=== PATIENT | male | born 1970 | race Caucasian/White ===

== ENCOUNTER 2022-02-04 14:00 | Emergency (ER) | payer SELFPAY ==
[2022-02-04] MEDS ORDERED: HYDROcodone/Acetaminophen 10/325 mg Tablet ONE (14:25)
[2022-02-04] MEDS ORDERED: AMOXicillin 250 MG CAP ONE (14:27)
[2022-02-04] MEDS ORDERED: AMOXicillin 250 MG CAP PO SCH (15:00)
[2022-02-04] MEDS ORDERED: HYDROcodone/Acetaminophen 10/325 mg Tablet PO SCH (15:00)
== END 2022-02-04 14:30 | disposition home or self-care (01) ==
LOC: BURERS 14:00
DX: K02.9 Dental caries, unspecified (principal)
CPT/HCPCS: 99282

== ENCOUNTER 2023-09-13 10:08 | Outpatient (CLI) | payer OTHER | END 2023-09-13 10:09 | disposition home or self-care (01) | LOC: BURRAD 10:08 | PROVIDERS: ATTEND Physician Assistant | DX: M54.2 Cervicalgia (principal); M54.6 Pain in thoracic spine; M54.41 Lumbago with sciatica, right side; M47.816 Spondylosis without myelopathy or radiculopathy, lumbar region; M47.814 Spondylosis without myelopathy or radiculopathy, thoracic region; M47.812 Spondylosis without myelopathy or radiculopathy, cervical region | CPT/HCPCS: 72040; 72070; 72110 ==